=== PATIENT | female | born 1975 | race Caucasian/White ===

== ENCOUNTER 2019-07-15 19:27 | Emergency (ER) | payer OTHER ==
[~2019-07-15] VITALS: Ht 170.2 cm; Wt 120.5 kg
[2019-07-15] MEDS ORDERED: ALPR0.5T8 PO (19:56)
[2019-07-15] MEDS ORDERED: SIMV20TA6 PO (19:56)
[2019-07-15] MEDS ORDERED: DIVA125T32 PO (19:56)
[2019-07-15 20:50] VITALS: BP 135/79
== END 2019-07-15 21:11 | disposition home or self-care (01) ==
LOC: EMS 19:28
DX: M27.2 Inflammatory conditions of jaws (principal); F41.9 Anxiety disorder, unspecified; F17.210 Nicotine dependence, cigarettes, uncomplicated; Z79.899 Other long term (current) drug therapy; E78.00 Pure hypercholesterolemia, unspecified
CPT/HCPCS: 99406